=== PATIENT | male | born 1970 | race Caucasian/White ===

== ENCOUNTER 2019-12-18 10:37 | Emergency (ER) | payer OTHER ==
[2019-12-18 10:44] VITALS: BP 146/98; PULSE 75; RESP 18; TEMP 98.9
--- NOTE | 2019-12-18 10:52 | ED ---
Skin/Abscess/FB HPI - General Chief complaint: Skin/Abscess/Foreign Body Stated complaint: Tooth pain Time Seen by Provider: 12/18/19 10:48 Source: patient Mode of arrival: ambulatory Limitations: no limitations - History of Present Illness Initial comments: Patient is a 41-year-old male presenting to emergency Department with a chief complaint of dental pain. Patient states he was diagnosed with staph infection by his primary care physician about one week ago and started on Bactrim. Patient reports after taking about 3-4 days of the medication, he developed lesions under his tongue and his gums and top and bottom became inflamed and painful. Patient states he stopped taking the antibiotic. States about less than 3 days ago he also developed a tingling-like sensation on the right side of his face along with some delay in reaction with his right eyelid. He also reports watering of the right eyelid. Denies any changes to his vision. Denies one-sided weakness or paresthesias in the extremities. - Related Data Previous Rx's Medication Instructions Recorded Clindamycin [Cleocin] 150 mg PO Q6H #28 capsule 12/18/19 predniSONE 60 mg PO DAILY #7 tab 12/18/19 valACYclovir HCL [Valtrex] 1,000 mg PO Q8HR #28 tab 12/18/19 Allergies Allergy/AdvReac Type Severity Reaction Status Date / Time No Known Allergies Allergy Verified 12/18/19 10:44 Review of Systems ROS Statement: Those systems with pertinent positive or pertinent negative responses have been documented in the HPI. ROS Other: All systems not noted in ROS Statement are negative. Past Medical History Past Medical History: No Reported History History of Any Multi-Drug Resistant Organisms: None Reported Past Surgical History: Cholecystectomy Past Psychological History: No Psychological Hx Reported Smoking Status: Never smoker Past Alcohol Use History: Occasional Past Drug Use History: None Reported General Exam Limitations: no limitations General appearance: alert, in no apparent distress Head exam: Present: atraumatic, normocephalic. Absent: normal inspection (semi paralysis to the right side of the face. This is also noted in the forehead) Eye exam: Present: normal appearance, PERRL, EOMI Pupils: Present: normal accommodation ENT exam: Present: normal exam, mucous membranes moist, TM's normal bilaterally, normal external ear exam. Absent: normal oropharynx (Herpetic-like lesions in the oral cavity, under the tongue and along the gumlines.) Neck exam: Present: normal inspection (Healing staph infection on the left side of the chin.), full ROM. Absent: tenderness, lymphadenopathy Respiratory exam: Present: normal lung sounds bilaterally. Absent: respiratory distress, wheezes, rales Cardiovascular Exam: Present: regular rate, normal rhythm, normal heart sounds Extremities exam: Present: normal inspection, full ROM, normal capillary refill. Absent: tenderness, pedal edema, joint swelling Back exam: Present: normal inspection, full ROM. Absent: tenderness, CVA tenderness (R), CVA tenderness (L) Neurological exam: Present: alert, oriented X3, normal gait. Absent: CN II-XII intact (Paralysis noted along the facial nerve on the right side of face.) Psychiatric exam: Present: normal affect, normal mood Skin exam: Present: warm, dry, intact, normal color Course Vital Signs 12/18/19 10:38 Temperature 98.9 F Pulse Rate 75 Respiratory 18 Rate Blood Pressure 146/98 O2 Sat by Pulse 100 Oximetry Medical Decision Making - Medical Decision Making Patient is a 49-year-old male presenting to emergency Department with chief complaint of dental pain. Physical examination, patient has a healing skin infection on the left side of the chin. He never completely finished his antibiotic treatment of the Bactrim. I will cover him with clindamycin for the next 7 days. He also appears to have right-sided facial paralysis going on for less than 3 days. He has tearing on the right right eye. 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 Rest of neurological examination is unremarkable. Low suspicion for stroke at this time. Dr. Rizvi also examined the patient and is in agreement with the treatment plan. Considering his symptoms have occurred less than 3 days, patient will be started on prednisone and Valtrex. Strict return parameters were thoroughly discussed with patient was understanding and agreeable. He was advised to apply artificial eyedrops and tape his eyelid was sleeping. He was advised to keep close follow-up with his primary care physician. Disposition Clinical Impression: Facial paralysis/[place] palsy Disposition: HOME SELF-CARE Instructions (If sedation given, give patient instructions): [place]reira Palsy (ED) Additional Instructions: Use artificial drops. Tape the eye shut when sleeping and night. Follow up with her primary care physician. Take prescribed medication as directed. Return to emergency department if symptoms worsen. Prescriptions: Clindamycin [Cleocin] 150 mg PO Q6H #28 capsule predniSONE 60 mg PO DAILY #7 tab valACYclovir HCL [Valtrex] 1,000 mg PO Q8HR #28 tab Is patient prescribed a controlled substance at d/c from ED?: No Referrals: Sapphire Robles MD [Primary Care Provider] - 1-2 days Time of Disposition: 11:29
== END 2019-12-18 11:50 | disposition home or self-care (01) ==
LOC: EC 10:37
DX: G51.0 Bell's palsy (principal)
CPT/HCPCS: 99282

== ENCOUNTER → 2021-01-28 | Outpatient (CLI) | payer OTHER ==
[2021-01-28 18:08] LABS: ALT 35 U/L (10-49); AST 23 U/L (14-35); Chol/HDL Ratio 4.79 Ratio
== END | disposition home or self-care (01) ==
LOC: LABWHC1 09:43
PROVIDERS: ATTEND Internal Medicine Cardiovascular Disease
DX: E78.2 Mixed hyperlipidemia (principal)
CPT/HCPCS: 36415; 80061; 84450; 84460